=== PATIENT | female | born 1990 | race African-American/Black ===

== ENCOUNTER 2016-06-20 15:27 | Emergency (ER) | payer OTHER ==
--- NOTE | 2016-06-20 16:19 | ED Physician Documentation ---
Upper Respiratory Symptoms - HISTORIAN Historian: patient - HPI Chief Complaint: Cough/ Upper Respiratory Onset: days ago (14 days) Duration: constant Associated Symptoms: runny nose (clear), sinus drainage (mild), sore throat, hoarseness. denies: fever, chills Worsened by Deep Breath: No - ROS CONST/EYES: denies: weakness MS/SKIN: muscle aches (mild). denies: joint pain, rash - PAST HX Lung Disease: denies: asthma, COPD, pneumothorax, bronchiectasis PE Risk Factors: none Other History: denies: diabetes Type 2 Surgeries/Procedures: (x2) Allergies/Adverse Reactions: Allergies Allergy/AdvReac Type Severity Reaction Status Date / Time No Known Allergies Allergy Unverified 05/20/16 09:13 - SOCIAL HX Smoking History: non-smoker Alcohol Use: none Drug Use: none - FAMILY HX Family History: no significant history - VITAL SIGNS Vital Signs: Vital Signs Temp Pulse Resp BP Pulse Ox 130/70 05/20/16 09:50 - REVIEWED ASSESSMENTS Nursing Assessment Reviewed: Yes Vitals Reviewed: Yes ED Results Lab/Radiology - Lab Results Lab Results: Lab Results 06/20/16 15:44 Group A Strep Screen Negative (NEGATIVE) - Radiology Radiology Impressions: Chest x-ray: normal - Orders Orders: ED Orders Category Date Time Status CHEST P.A.&LAT 2 VIEWS [RAD] Routine Exams 06/20/16 Ordered GRP A STREP SCREEN Routine Lab 06/20/16 15:44 Completed THROAT CULTURE Routine Lab 06/20/16 15:44 Received Upper Respiratory Symptoms - EXAM General Appearance: no acute distress, alert EENT: eyes nml inspection Neck: normal inspection, supple. No: lymphadenopathy, stiff neck Respiratory: no resp. distress, breath sounds nml, speaks full sentences. No: respiratory distress CVS: reg rate & rhythm, heart sounds normal, equal pulses Skin: color nml, no rash Extremities: non-tender, normal range of motion Neuro/Psych: oriented x3, mood/affect nml Discharge Clincal Impression: Bronchitis Additional Instructions: Drink a lot of fluids, gargle with salt water, take Zithromycin as directed. If not better by next week to follow-up with primary care provider. Condition: Stable Disposition: HOME, SELF-CARE Decision to Admit: NO Date of Decison to Admit: 06/20/16 Decision Time: 16:28
[2016-06-20 16:38] VITALS: BP 162/84
--- NOTE | 2016-06-20 18:30 | Diagnostic Imaging Report ---
[facility] [address] [facility].[address] [id number] Report Submission Date: Jun 20, 2016 4:06:01 PM INFORMATION ARCHITECT Patient Study Name: ARON IRVING Date: Jun 20, 2016 3:49:26 PM INFORMATION ARCHITECT Modality Type: CR Gender: F Description: CHEST : 89 Institution: [facility] Physician: JESU ALCANTAR 2 views of the chest Clinical history: Cough and wheezing Findings: The heart size is normal. Pulmonary vasculature is normal. No pleural effusion, pneumothorax or alveolar consolidation. Impression: Negative Electronically signed on Jun 20, 2016 4:06:01 PM INFORMATION ARCHITECT by: Frank MIGUEL
== END 2016-06-20 16:38 | disposition home or self-care (01) ==
LOC: ED 15:27
DX: J20.9 Acute bronchitis, unspecified (principal)
CPT/HCPCS: 71020; 87070; 87880; 99282

== ENCOUNTER 2016-12-11 11:59 | Emergency (ER) | payer OTHER ==
[2016-12-11 12:15] VITALS: BP 131/78
[2016-12-11] MEDS ORDERED: KETOROLAC TROMETHAMINE 60 MG/2 ML VIAL ONE (12:21)
[2016-12-11] MEDS: KETOROLAC TROMETHAMINE 60 MG/2 ML VIAL IM ONE (12:25)
--- NOTE | 2016-12-11 13:15 | ED Physician Documentation ---
General Adult - HISTORIAN Historian: patient - HPI Stated Complaint: Right chest pain Chief Complaint: General Adult Onset: hours Timing: still present Severity: moderate Further Comments: yes (Pt is a 26 yo female with pain in her R chest, made worse by deep breathing and palpation. No radiation, n/v, sob.) - ROS CONST: no problems EYES/ENT: none CVS/RESP: chest pain (with deep breath) GI/: none MS/SKIN/LYMPH: none - PAST HX Past History: other (C-sec) Allergies/Adverse Reactions: Allergies Allergy/AdvReac Type Severity Reaction Status Date / Time No Known Allergies Allergy Verified 12/11/16 12:11 Home Medications: Ambulatory Orders Medication Instructions Recorded NK [NK] 06/20/16 - SOCIAL HX Smoking History: non-smoker - FAMILY HX Family History: No - VITAL SIGNS Vital Signs: Vital Signs Temp Pulse Resp BP Pulse Ox 98.2 F 68 16 131/78 99 12/11/16 12:13 12/11/16 12:13 12/11/16 12:13 12/11/16 12:13 12/11/16 12:13 - REVIEWED ASSESSMENTS Nursing Assessment Reviewed: Yes Vitals Reviewed: Yes Progress - EKG/XRAY/CT EKG: NSR (HR=67; Normal EKG.) ED Results Lab/Radiology - Orders Orders: ED Orders Category Date Time Status Ketorolac Tromethamine [Toradol] Med 12/11/16 12:21 Discontinued 60 mg .ROUTE .STK-MED ONE Ketorolac Tromethamine [Toradol] Med 12/11/16 12:21 Discontinued 60 mg IM NOW ONE EKG WITH COMPARISON Stat Ther 12/11/16 Ordered General Adult Physical Exam - PHYSICAL EXAM GENERAL APPEARANCE: no distress EENT: pharynx normal NECK: normal inspection, supple RESPIRATORY: no resp distress, breath sounds normal, other (tenderness to palpation, R chest near sternal margin) CVS: reg rate & rhythm, heart sounds normal BACK: normal inspection, no CVA tenderness SKIN: warm/dry, normal color EXTREMITIES: non-tender, normal range of motion, no evidence of injury NEURO: oriented X3, motor nml, sensation nml Discharge Clincal Impression: Costochondritis Referrals: Primary Doctor,No [Primary Care Provider] - Home Medications: Ambulatory Orders NK [NK] 06/20/16 Condition: Good Disposition: 01 HOME, SELF-CARE Decision to Admit: NO Decision Time: 13:03
== END 2016-12-11 13:08 | disposition home or self-care (01) ==
LOC: ED 11:59
DX: M94.0 Chondrocostal junction syndrome [Tietze] (principal)
CPT/HCPCS: 93005; J1885; 96372; 99283

== ENCOUNTER 2017-03-26 17:51 | Emergency (ER) | payer OTHER ==
[2017-03-26 18:04] VITALS: BP 153/63
--- NOTE | 2017-03-26 18:12 | ED Physician Documentation ---
Upper Respiratory Symptoms - HISTORIAN Historian: patient - HPI Stated Complaint: congestion Chief Complaint: Upper Respiratory Symptoms Onset: days ago Context: denies: recent foreign travel, insect bite(s), tick(s), recent chemotherapy Associated Symptoms: chills, runny nose, sinus pain, sinus drainage, sore throat. denies: sweating, earache, hoarseness, allergy, hay fever, chest pain, bloody cough, productive cough, shortness of breath, hurts to breathe, headache Further Comments: yes (26 year old female patient presents with complaint of sinus pressure, drainage, sore throat, cough worse over past 2 days. No improvment with pseudophed and afrin. LMP 10 days ago.) - ROS CONST/EYES: denies: weakness CVS/RESP: none LYMPH: denies: leg swelling, rash, swollen glands, ankle swelling, other GI/: none NEURO/PSYCH: denies: fainting, dizziness, confusion, anxiety, depression, other MS/SKIN: denies: joint pain, muscle aches, rash, other - PAST HX Lung Disease: none PE Risk Factors: none Allergies/Adverse Reactions: Allergies Allergy/AdvReac Type Severity Reaction Status Date / Time No Known Allergies Allergy Verified 03/26/17 18:04 Home Medications: Ambulatory Orders Medication Instructions Recorded Levofloxacin [Levaquin] 500 mg PO DAILY #7 tablet 03/26/17 - SOCIAL HX Smoking History: non-smoker - FAMILY HX Family History: denies: none - VITAL SIGNS Vital Signs: Vital Signs Temp Pulse Resp BP Pulse Ox 99.3 F 82 18 153/63 98 03/26/17 17:59 03/26/17 17:59 03/26/17 17:59 03/26/17 17:59 03/26/17 17:59 - REVIEWED ASSESSMENTS Nursing Assessment Reviewed: Yes Vitals Reviewed: Yes Upper Respiratory Symptoms - EXAM General Appearance: mild distress EENT: lids & conjunct. nml, PERRL, ear nml, pain over sinuses, maxillary, ethmoid, mucosal edema, purulent nasal drainage, pharyngeal erythema Respiratory: no resp. distress, breath sounds nml, no pain on inspiration, speaks full sentences, no pleuritic chest pain Abdomen: non-tender, no organomegaly, nml bowel sounds, no distention CVS: reg rate & rhythm, heart sounds normal, equal pulses, no murmur, no gallop , PMI nml, no JVD, no friction rub, 24 Skin: color nml, no rash, warm,dry Extremities: non-tender, normal range of motion, no evidence of injury, no edema , J, [employer] Neuro/Psych: oriented x3, neuro intact, mood/affect nml, CN's nml as tested Discharge Clincal Impression: Maxillary sinusitis, acute Qualifiers: Recurrence: non-recurrent Qualified Code(s): J01.00 - Acute maxillary sinusitis , unspecified Ethmoid sinusitis Qualifiers: Chronicity: acute Recurrence: non-recurrent Qualified Code(s): J01.20 - Acute ethmoidal sinusitis, unspecified Prescriptions: Levofloxacin [Levaquin] 500 mg PO DAILY #7 tablet Referrals: Primary Doctor,No [Primary Care Provider] - 2 Days Additional Instructions: 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 transportation department supervisor an over the counter decongestant such as pseudoped, dayquil and Nyquil at your pharmacy. Treat your symptoms with over the counter medication. You may want to try Vicks rub on your chest and/or feet Cough drops as needed for cough and sore throat. Increase your fluid intake juices, hot tea, non-caffeinated beverages Use a humidifier in the room where you sleep. You can also sit in a steam filled bathroom 1-2 times a day. Tylenol or Ibuprofen as needed for fever, pain and body aches. Start daily allergy medication such as Claritin, Melody or Zyrtec. Start a daily nasal spray such as Flonase or Nasonex You may benefit from the use of a netti pot follow package instructions. See your primary care doctor after you have completed your antibiotic if you symptoms have not resolved. Many times it takes multiple rounds of antibiotics to resolve a sinus infection. Condition: Stable Disposition: 01 HOME, SELF-CARE Decision to Admit: NO Decision Time: 18:11
== END 2017-03-26 18:15 | disposition home or self-care (01) ==
LOC: ED 17:51
DX: J01.00 Acute maxillary sinusitis, unspecified (principal); J01.20 Acute ethmoidal sinusitis, unspecified
CPT/HCPCS: 99283